=== PATIENT | female | born 1990 | race Caucasian/White ===

== ENCOUNTER 2022-03-28 13:40 | Emergency (ER) | payer SELFPAY ==
[2022-03-28 13:44] VITALS: BP 112/64; PULSE 101; RESP 18; TEMP 36.6; O2SAT 98
--- NOTE | 2022-03-28 14:01 | ED.GENADUL_ITS ---
Discharge Plan Disposition Patient Disposition: Home Condition: Stable Discharge Details Clinical Impression: Pyelonephritis Primary Care Provider: None,None ED Provider: Jones Tuttle Home Meds and New Rx's Prescriptions: New cefpodoxime 200 mg tablet 200 mg PO Q12H Qty: 20 0RF Rx Instructions: must administer with a meal/food Continued levetiracetam [Keppra] 500 MG tablet 1,000 mg PO Q12H Qty: 60 1RF Discontinued ciprofloxacin HCl 500 MG tablet 500 mg PO BID Qty: 10 0RF Discharge Instructions Instructions: Kidney Infection (ED) Additional Instructions: Please take antibiotics as prescribed and follow-up with your primary care provider if not improving in the next 4 days. If you develop persistent vomiting, inability to take your antibiotics, or worsening of your condition return to the emergency department for reassessment. Referrals: Primary Care Provider [Outside] Discharge Data Discharge Date/Time-TO BE ENTERED AT DEPARTURE: 03/28/22 15:44 Medical Decision Making Patient presenting to the emergency department for chief complaint of urinary urgency, bilateral flank pain, nausea, fever chills. She states this is similar to previous episodes of kidney infection. She reports symptoms have been going on for 3 days. She does states she is tolerating p.o. intake and otherwise feels well. Physical exam shows nontoxic well-appearing female patient with mild to moderate bilateral CVA tenderness, suprapubic tenderness otherwise stable vital signs no tachycardia and is afebrile. We will plan on checking urinalysis and test. Patient is not and urinalysis is consistent with infection. At this time I doubt infected renal calculi but more suspect urinary tract infection with suspicion of pyelonephritis. I do feel that patient is stable for outpatient therapy and will put patient on cefpodoxime with discussion of close monitoring of symptoms and return and follow-up precautions. After discussion of diagnosis and plan of care patient has no further needs, questions, or concerns and states clear understanding to return to the emergency department for any worsening symptoms. This documentation was generated using [employer] system, please disregard any oddities of phrase or misspellings. HPI General Mode of arrival: ambulatory . Date/Time Provider Initiated Documentation: 03/28/22 13:40 . Limitations to Documentation: no limitations . Information obtained by: patient and RN notes reviewed . History of Present Illness 31 year old F presents to the emergency department with the chief complaint of Bilateral flank pain, described as moderate, with intensity rated at 7. Quality is described as aching, and is localized to the back. Patient reports no radiation. Patient started experiencing this day(s) (3) and it has been constant. No relieving factors improve symptom(s), No exacerbating factors reported . Patient notes fever/chills; denies loss of appetite. Patient did receive the following treatments prior to arrival, NSAID Related Data Home Medications Medication Instructions Recorded Confirmed levetiracetam 500 mg tablet 1,000 mg PO Q12H #60 tabs 10/01/16 (Keppra) cefpodoxime 200 mg tablet 200 mg PO Q12H #20 tabs 03/28/22 Previous Rx's Medication Instructions Recorded levetiracetam 500 mg tablet 1,000 mg PO Q12H #60 tabs 10/01/16 (Keppra) cefpodoxime 200 mg tablet 200 mg PO Q12H #20 tabs 03/28/22 Allergies Allergy/AdvReac Type Severity Reaction Status Date / Time Penicillins Allergy Severe Anaphylaxsi Unverified 09/30/16 09:46 s codeine Allergy Intermediate Skin Rash Unverified 09/30/16 09:46 venom-honey bee Allergy Unknown Swelling/Ed Unverified 09/30/16 09:46 [bee venom (honey bee)] bala onions Allergy Intermediate Swelling/Ed Uncoded 09/30/16 09:46 bala General Stated Complaint: FlankPain NEIL: 3 Review of Systems Constitutional Constitutional: Denies body ache(s), Reports chills, Reports fever(s), Reports malaise and Denies weakness Cardiovascular Cardiovascular: Denies chest pain Respiratory Respiratory: Reports system reviewed and no additional complaints, except as documented Gastrointestinal Gastrointestinal: Reports abdominal pain, Denies nausea and Denies vomiting Genitourinary Genitourinary: Reports as per HPI, Denies hematuria, Denies urinary frequency, Denies dysuria, Reports flank pain, Reports urinary urgency and Denies vaginal discharge Musculoskeletal Musculoskeletal: Denies back pain Integumentary/Breasts Skin/Breast: Denies rash Neurologic Neurologic: Denies confusion and Denies weakness Psychiatric Psychiatric: Denies confusion PFSH All Active Problems (Updated 03/28/22 @ 15:27 by Jones Tuttle NP) Pain, dental (Acute) Pyelonephritis (Acute) Social History Smoking/Tobacco Use Status: Current every day Tobacco Type: cigarettes Smoking risk assessment performed?: Yes Alcohol Intake: never Drug use: Current Sobriety Substance use type: does not use Do you feel safe at home: Yes Do you feel safe in your relationship?: Yes Exam Const General: cooperative and no acute distress Orientation: alert, awake and oriented x3 Resp Effort & Inspection: normal respiratory effort and able to speak in complete sentences Auscultation: clear to auscultation bilaterally Cardio Rate: regular rate Rhythm: regular rhythm Heart Sounds: S1 normal and S2 normal GI Palpation: soft, not firm, no guarding and tender suprapubicly General: CVA tenderness bilaterally Neuro General: patient alert, patient awake and patient oriented x3 Extrem General: capillary refill normal Course Vital Signs Vital signs: Vital Signs Temperature 36.6 C 03/28/22 13:44 Pulse 101 H 03/28/22 13:44 Respiratory Rate 18 03/28/22 13:44 Blood Pressure 112/64 03/28/22 13:44 Pulse Oximetry 98 03/28/22 13:44 Temperature 36.6 C 03/28/22 13:44 Temperature Source Tympanic 03/28/22 13:44 Pulse 101 H 03/28/22 13:44 Respiratory Rate 18 03/28/22 13:44 Respiratory Effort 03/28/22 13:46 Blood Pressure 112/64 03/28/22 13:44 Blood Pressure Position Supine 03/28/22 13:44 Pulse Oximetry 98 03/28/22 13:44 Oxygen Delivery Method Room Air 03/28/22 13:44 Oxygen Flow Rate 0 03/28/22 13:44 Pain Level 6 03/28/22 13:44
[2022-03-28 14:26] LABS: Bilirubin Small (Negative); Blood Moderate (Negative); Clarity Cloudy (Clear); Glucose Negative (Negative); Ketones Negative (Negative); Leukocyte Esterase Large (Negative); Nitrite Negative (Negative)
[2022-03-28 14:32] LABS: WBC 20-50 HPF (0-5)
[2022-03-28 14:33] LABS: Bacteria Moderate HPF (Negative); C & S Indicated? Yes; Casts Negative LPF (Negative); Crystals Negative HPF (Negative); Epithelial Cells Few HPF (Negative); Mucus Trace (Negative)
[2022-03-28] MEDS: Cefpodoxime 200 MG TAB PO (15:41)
== END 2022-03-28 15:44 | disposition home or self-care (01) ==
PROVIDERS: Emergency Provider Nurse Practitioner Family
DX: N12 Tubulo-interstitial nephritis, not specified as acute or chronic (principal)
CPT/HCPCS: 81025; 87077; 99283; 81003; 81015; 87086; 87186; 99284

== ENCOUNTER 2022-08-11 14:26 | Emergency (ER) | payer SELFPAY ==
[2022-08-11 14:32] VITALS: BP 115/65; PULSE 100; RESP 18; O2SAT 100
[2022-08-11 14:49] LABS: Bilirubin Negative (Negative); Blood Negative (Negative); Clarity Clear (Clear); Glucose Negative (Negative); Ketones Negative (Negative); Leukocyte Esterase Negative (Negative); Nitrite Negative (Negative)
--- NOTE | 2022-08-11 14:54 | W.ED.GENAD ---
Discharge Plan Disposition Patient Disposition: Home Condition: Stable Discharge Details Clinical Impression: Viral infection Primary Care Provider: None,None ED Provider: Rody Burleson Home Meds and New Rx's Prescriptions: Continued levetiracetam [Keppra] 500 MG tablet 1,000 mg PO Q12H Qty: 60 1RF Patient Comments: pt states not taking cefpodoxime 200 mg tablet 200 mg PO Q12H Qty: 20 0RF Patient Comments: pt states not taking Rx Instructions: must administer with a meal/food Discharge Instructions Instructions: Viral Syndrome (ED) Additional Instructions: Your urine is reassuring here with no evidence of urinary tract infection. Your COVID and flu were also negative. Most concerned that you have a viral infection causing you to have these fevers. Please encourage hydration. Tylenol and ibuprofen as needed for discomfort. I have asked her care management team to assist you with local primary care. If you develop inability stay hydrated, more focal symptoms such as significant cough, abdominal pain or other new/worsening symptom please seek care urgently once again. Wash your hands to help prevent spread. Discharge Data Discharge Date/Time-TO BE ENTERED AT DEPARTURE: 08/11/22 15:40 Medical Decision Making Patient is a pleasant 31-year-old female with past medical history of asthma, kidney stones, narcotic abuse, seizure disorder, active smoker, presenting today with chief complaint of fever. She reports that for the past 3 days she had general malaise, has felt febrile with some chills. Reports mild cough and some loose stools. 1 bowel movement today. Nonbloody. Denies any abdominal pain. No vaginal discharge. Denies any dysuria, increased frequency or urgency. Patient reports that she is up-to-date on immunizations. Denies sore throat, congestion. On exam, patient appears nontoxic. She is currently afebrile. She appears slightly dehydrated. Lungs are clear, normal cardiac exam. Abdomen is benign. No CVA tenderness. Patient was initially concern for potential UTI she has had multiple of these in the past but her urine is without leukocytes or evidence of infection. Her vagueness and general malaise of her symptoms make him think more viral etiology. Will obtain COVID test. COVID-negative. Patient was initially slightly tachycardic with a heart rate of 100 this is downtrending. She is able to tolerate p.o. intake. Her urine is without evidence of infection. Likely viral infection. Encourage supportive care. We discussed expected course. Patient does not have local primary care and I have asked our care management team to assist in helping her obtain local PCP for follow-up. Return precautions discussed. All of her questions and concerns were addressed and she is in agreement this plan. HPI General Date/Time Provider Initiated Documentation: 08/11/22 14:41. Limitations to Documentation: no limitations. Information obtained by: patient, family (significant other) and RN notes reviewed. History of Present Illness 31 year old F presents to the emergency department with the chief complaint of nausea, fever, general malaise, cough, loose stools, described as mild, Quality is described as aching (body aches), Patient started experiencing this day(s) (3) and it has been constant. No relieving factors improve symptom(s), No exacerbating factors reported . Patient notes cough, fever/chills, loss of appetite, malaise and nausea/vomiting (nausea, no vomiting); denies chest pain, rash and shortness of breath. Patient did receive the following treatments prior to arrival, none Related Data Home Medications Medication Instructions Recorded Confirmed levetiracetam 500 mg tablet 1,000 mg PO Q12H #60 tabs 10/01/16 (Keppra) cefpodoxime 200 mg tablet 200 mg PO Q12H #20 tabs 03/28/22 Previous Rx's Medication Instructions Recorded levetiracetam 500 mg tablet 1,000 mg PO Q12H #60 tabs 10/01/16 (Keppra) cefpodoxime 200 mg tablet 200 mg PO Q12H #20 tabs 03/28/22 Allergies Allergy/AdvReac Type Severity Reaction Status Date / Time Penicillins Allergy Severe Anaphylaxsi Unverified 09/30/16 09:46 s codeine Allergy Intermediate Skin Rash Unverified 09/30/16 09:46 venom-honey bee Allergy Unknown Swelling/Ed Unverified 09/30/16 09:46 [bee venom (honey bee)] bala onions Allergy Intermediate Swelling/Ed Uncoded 09/30/16 09:46 bala General Stated Complaint: Urinary NEIL: 3 Review of Systems Constitutional Constitutional: Reports as per HPI and Denies headache(s) Eyes Eyes: Reports as per HPI and Denies irritation ENT Ears, Nose, Mouth, and Throat: Reports as per HPI and Denies headache(s) Cardiovascular Cardiovascular: Reports as per HPI, Denies chest pain and Denies dyspnea Respiratory Respiratory: Reports as per HPI and Denies dyspnea Gastrointestinal Gastrointestinal: Reports as per HPI, Denies abdominal pain and Denies change in bowel habits Integumentary/Breasts Skin/Breast: Reports as per HPI and Denies rash Neurologic Neurologic: Reports as per HPI and Denies headache(s) PFSH All Active Problems (Updated 08/11/22 @ 15:32 by CINTHYA Vaughn) Pain, dental (Acute) Viral infection (Acute) Social History Smoking/Tobacco Use Status: Current every day Tobacco Type: cigarettes Smoking risk assessment performed?: Yes Alcohol Intake: never Drug use: Current Sobriety Substance use type: does not use Do you feel safe at home: Yes Do you feel safe in your relationship?: Yes Exam Const General: cooperative, healthy appearing, comfortable, no acute distress, well developed and well groomed Nutritional Appearance: average body habitus and well nourished Orientation: alert and awake [facility] Head: normal to inspection, normocephalic and atraumatic Ears: hearing grossly normal bilaterally, external ears normal and TM's normal bilaterally General nose exam: external nose normal and nares normal Face and sinus: normal facial exam, sinuses nontender and face symmetric Mouth: oral mucosae normal, lip normal, tongue normal, oropharynx normal and moist mucous membranes Teeth and gingiva: dentition normal Throat: posterior oropharynx normal, tonsils normal and uvula midline Eyes General: appearance normal, both eyes and all related structures Neck Neck: normal visual inspection, full ROM, no lymphadenopathy and no meningeal signs Resp Effort & Inspection: normal respiratory effort, able to speak in complete sentences and no respiratory distress Auscultation: clear to auscultation bilaterally, no rales, no rhonchi and no wheezes Cardio Rate: regular rate Rhythm: regular rhythm Heart Sounds: S1 normal and S2 normal GI Inspection: normal to inspection Palpation: soft, not firm, not rigid and nontender Back/Spine/Pelvis Back: no CVA tenderness Skin General skin exam: no rashes or lesions noted Neuro General: patient alert and patient awake Cognition: normal cognition Speech: speech normal Gait: normal gait Psych Appearance: grossly normal and well kempt Mental Status: mental status grossly normal Speech and Movement: speech and movement normal Course Vital Signs Vital signs: Vital Signs Pulse 100 H 08/11/22 14:32 Respiratory Rate 18 08/11/22 14:32 Blood Pressure 115/65 08/11/22 14:32 Pulse Oximetry 100 08/11/22 14:32 Temperature Source Oral 08/11/22 14:32 Pulse 100 H 08/11/22 14:32 Respiratory Rate 18 08/11/22 14:32 Respiratory Effort Normal, Non-Labored 08/11/22 14:46 Blood Pressure 115/65 08/11/22 14:32 Blood Pressure Position Sitting 08/11/22 14:32 Pulse Oximetry 100 08/11/22 14:32 Oxygen Delivery Method Room Air 08/11/22 14:32 Oxygen Flow Rate 0 08/11/22 14:32 Lab/Test Results Lab/Test Results: Laboratory Tests Range/Units 08/11/22 14:42 Urine Color (Yellow) Yellow Urine Clarity (Clear) Clear Urine pH (5-8) 7.0 Ur Specific [place] (1.005-1.025) 1.010 Urine Protein (Negative) mg/dL Negative Urine Ketones (Negative) mg/dL Negative Urine Blood (Negative) Negative Urine Nitrite (Negative) Negative Urine Bilirubin (Negative) Negative Urine Urobilinogen (Up to 0.2) mg/dL 1.0 H Ur Leukocyte Esterase (Negative) Negative Urine Glucose (Negative) mg/dL Negative POC- Test(urine) Negative
[2022-08-11 15:41] VITALS: BP 114/74; PULSE 86; RESP 18; TEMP 36.8; O2SAT 97
== END 2022-08-11 15:40 | disposition home or self-care (01) ==
PROVIDERS: Emergency Provider Physician Assistant
DX: B34.9 Viral infection, unspecified (principal); R11.2 Nausea with vomiting, unspecified
CPT/HCPCS: 81025; 87426; 99283; 81003

== ENCOUNTER 2023-02-08 12:38 | Emergency (ER) | payer MEDICAID, SELFPAY ==
[2023-02-08 12:44] VITALS: BP 122/79; PULSE 82; RESP 20; TEMP 37.1; O2SAT 99
--- NOTE | 2023-02-08 12:49 | W.ED.GENAD ---
Discharge Plan Disposition Patient Disposition: Home Condition: Good Discharge Details Chief Complaint: GenMedical Clinical Impression: Encounter for medical assessment Primary Care Provider: None,None ED Provider: Viet Scott Home Meds and New Rx's Prescriptions: No Action levetiracetam [Keppra] 500 MG tablet 1,000 mg PO Q12H Qty: 60 1RF Hold Instructions: Pt Stopped/Never Started Patient Comments: pt states not taking cefpodoxime 200 mg tablet 200 mg PO Q12H Qty: 20 0RF Patient Comments: pt states not taking Rx Instructions: must administer with a meal/food Discharge Instructions Additional Instructions: At this time you had been seen and evaluated here in the emergency department. There is currently no evidence of an acute life-threatening etiology based on your current clinical assessment and exam. You do currently demonstrate medical stability. Please follow-up closely with your primary care provider. If you do have additional questions or concerns with your [facility] program, please contact your program [facility]. If you notice any worsening of your symptoms, or any new symptoms such as vomiting, diarrhea, fever, chills, shortness of breath, chest pain, numbness, weakness, or fainting , please return immediately to the emergency department for reevaluation. Please follow up with your primary care provider as soon as possible for reassessment and reevaluation. As always, it was a pleasure participating in your medical care today. Medical Decision Making 32-year-old female with a past medical history of previous heroin abuse, who got out of [facility] and then transition to Suboxone, but was getting this on the street for the last 3 months. Last time she used was fentanyl and that was 3 months ago. She has cleaned up her life per report, and she contacted [facility] in [place] for getting on medication assisted therapies. They requested that the patient come in and be screened by medical practitioner for medical screening and stability prior to her being able to start her therapy treatment. This is the reason for today's visit. Patient denies any chest pain or shortness of breath. She denies any IV drug use since last using fentanyl in the past. She denies vomiting or diarrhea. She denies headache or chest pain. No other complaints at this time. She does admit to tobacco and marijuana use occasionally. No other drug use. Not currently taking any medications. No alcohol use in excess. Exam demonstrates a well-appearing female, no vital sign abnormalities. No evidence of withdrawal. No evidence of recent illicit drug use. Lungs are clear, heart rate normal. The remainder of her exam shows no concerning red flags at this time. At this time patient demonstrates notable medical stability. I did contact [facility] and discussed this with them. They have faxed over the medical records request sheet. We we will send the medical records back to them. We do not have any current laboratory workup performed on the patient, and [facility] is stated that this is not necessary at this time. Patient otherwise stable. Patient will be discharged home. I did offer to set up a relationship with the [facility] [place] [place] [facility] here in [facility], and the patient requested a preference towards [facility] as the alternative. I have extensively reviewed the treatment plan and discharge instructions with the patient. I have addressed all patient concerns at this time. The patient was made aware of what symptoms to monitor for that would warrant a return to the emergency department. Discussed the plan with the patient, they demonstrate verbal understanding and agreement with our assessment and plan at this time. The documentation in this chart was dictated using [employer] dictation software. Please excuse any dictation errors. HPI General Date/Time Provider Initiated Documentation: 02/08/23 12:42. HPI Narrative: 32-year-old female with a past medical history of previous heroin abuse, who got out of [facility] and then transition to Suboxone, but was getting this on the street for the last 3 months. Last time she used was fentanyl and that was 3 months ago. She has cleaned up her life per report, and she contacted [facility] in [place] for getting on medication assisted therapies. They requested that the patient come in and be screened by medical practitioner for medical screening and stability prior to her being able to start her therapy treatment. This is the reason for today's visit. Patient denies any chest pain or shortness of breath. She denies any IV drug use since last using fentanyl in the past. She denies vomiting or diarrhea. She denies headache or chest pain. No other complaints at this time. She does admit to tobacco and marijuana use occasionally. No other drug use. Not currently taking any medications. No alcohol use in excess. Related Data Home Medications Medication Instructions Recorded Confirmed levetiracetam 500 mg tablet 1,000 mg (2 x 500 mg) PO Q12H #60 10/01/16 02/08/23 (Keppra) tabs cefpodoxime 200 mg tablet 200 mg PO Q12H #20 tabs 03/28/22 02/08/23 Previous Rx's Medication Instructions Recorded levetiracetam 500 mg tablet 1,000 mg (2 x 500 mg) PO Q12H #60 10/01/16 (Keppra) tabs cefpodoxime 200 mg tablet 200 mg PO Q12H #20 tabs 03/28/22 Allergies Allergy/AdvReac Type Severity Reaction Status Date / Time Penicillins Allergy Severe Anaphylaxsi Unverified 02/08/23 12:50 s codeine Allergy Intermediate Skin Rash Unverified 02/08/23 12:50 venom-honey bee Allergy Unknown Swelling/Ed Unverified 02/08/23 12:50 [bee venom (honey bee)] bala onions Allergy Intermediate Swelling/Ed Uncoded 02/08/23 12:50 bala General Stated Complaint: GenMedical NEIL: 4 Review of Systems All systems reviewed & are unremarkable except as noted in HPI and below PFSH All Active Problems (Updated 02/08/23 @ 13:18 by Viet Scott DO) Encounter for medical assessment (Acute) Pain, dental (Acute) Social History Smoking/Tobacco Use Status: Current every day Tobacco Type: cigarettes Smoking risk assessment performed?: Yes Alcohol Intake: never Drug use: Current Sobriety Substance use type: does not use Do you feel safe at home: Yes Do you feel safe in your relationship?: Yes Exam Narrative Exam Narrative: 1.Const: Well-nourished, Well-developed, appearing stated age 2.Eyes: PERRL, no conjunctival injection, and symmetrical lids. 3.ENT: Atraumatic external nose and ears. Moist MM. Neck: Symmetric, trachea midline, No thyromegaly. 4.CVS: +S1/S2, No murmurs or gallops. Peripheral pulses 2+ and equal in all extremities. Brisk capillary refill in all extremities. 5.RESP: Unlabored respiratory effort. Clear to auscultation bilaterally. No wheezes rales or rhonchi 6.GI: Soft, Nontender/Nondistended, No hepatosplenomegaly. No guarding or rebound. 7.MSK: Normocephalic/Atraumatic, Extremities w/o deformity or ttp No cyanosis or clubbing, Normal movement of all extremities 8.Skin: Warm, Dry. No rashes or lesions. 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 Sensation grossly intact, no focal neurologic deficits. 10.Psych: (AAO) x3. Appropriate mood and affect Course Vital Signs Vital signs: Vital Signs Temperature 37.1 C 02/08/23 12:44 Pulse 82 02/08/23 12:44 Respiratory Rate 20 02/08/23 12:44 Blood Pressure 122/79 02/08/23 12:44 Pulse Oximetry 99 02/08/23 12:44 Temperature 37.1 C 02/08/23 12:44 Temperature Source Oral 02/08/23 12:44 Pulse 82 02/08/23 12:44 Respiratory Rate 20 02/08/23 12:44 Respiratory Effort Normal 02/08/23 12:48 Respiratory Depth Normal 02/08/23 12:48 Respiratory Pattern Normal 02/08/23 12:48 Blood Pressure 122/79 02/08/23 12:44 Blood Pressure Position Sitting 02/08/23 12:44 Pulse Oximetry 99 02/08/23 12:44 Oxygen Delivery Method Room Air 02/08/23 12:44 Oxygen Flow Rate 0 02/08/23 12:44
--- NOTE | 2023-02-09 16:43 | NUR.NOTE ---
Nursing Note: Patient called with a question about her discharge. Patient needed documentation stating she had an opioid problem
== END 2023-02-08 13:22 | disposition home or self-care (01) ==
PROVIDERS: Emergency Provider Student in an Organized Health Care Education/Training Program
DX: Z76.0 Encounter for issue of repeat prescription (principal)
CPT/HCPCS: 99283

== ENCOUNTER 2023-05-08 10:19 | Emergency (ER) | payer MEDICAID, SELFPAY ==
[2023-05-08 10:25] VITALS: BP 135/74; PULSE 109; RESP 22; O2SAT 92
--- NOTE | 2023-05-08 10:32 | ED.GENADUL_ITS ---
Discharge Plan Disposition Patient Disposition: Home Condition: Stable Discharge Details Clinical Impression: Anxiety, Adverse drug reaction Primary Care Provider: Unknown,Unknown ED Provider: Yuri Zarate Home Meds and New Rx's Prescriptions: Discontinued levetiracetam [Keppra] 500 MG tablet 1,000 mg PO Q12H Qty: 60 1RF Hold Instructions: Pt Stopped/Never Started Patient Comments: pt states not taking cefpodoxime 200 mg tablet 200 mg PO Q12H Qty: 20 0RF Patient Comments: pt states not taking Rx Instructions: must administer with a meal/food Discharge Instructions Additional Instructions: You had no findings on exam to suggest an allergic reaction. This was likely an adverse reaction to the drugs that you used, which unfortunately can happen Follow-up with your primary care provider especially if you have lingering symptoms within a week If you feel more ill, have difficulty breathing, or persistent vomiting return to the emergency department for reevaluation HPI General Mode of arrival: ambulatory . Date/Time Provider Initiated Documentation: 05/08/23 10:20 . Limitations to Documentation: no limitations . Information obtained by: patient . History of Present Illness 32 year old F presents to the emergency department with the chief complaint of ?facial swelling, Patient started experiencing this hour(s) (1) and it has been constant. No relieving factors improve symptom(s), No exacerbating factors reported . Patient notes denies confusion, fever/chills, nausea/vomiting and shortness of breath. Patient did receive the following treatments prior to arrival, none Related Data Allergies Allergy/AdvReac Type Severity Reaction Status Date / Time Penicillins Allergy Severe Anaphylaxsi Unverified 02/08/23 12:50 s codeine Allergy Intermediate Skin Rash Unverified 02/08/23 12:50 venom-honey bee Allergy Unknown Swelling/Ed Unverified 02/08/23 12:50 [bee venom (honey bee)] bala onions Allergy Intermediate Swelling/Ed Uncoded 02/08/23 12:50 bala General Stated Complaint: Allergic NEIL: 3 Review of Systems All systems reviewed & are unremarkable except as noted in HPI and below Constitutional Constitutional: Denies chills, Denies fever(s) and Denies weakness Cardiovascular Cardiovascular: Denies chest pain and Denies dyspnea Respiratory Respiratory: Denies cough and Denies dyspnea Gastrointestinal Gastrointestinal: Denies abdominal pain, Denies nausea and Denies vomiting Integumentary/Breasts Skin/Breast: Denies rash Neurologic Neurologic: Denies weakness Exam Const General: anxious Orientation: alert HENMT Head: normal to inspection Ears: external ears normal General nose exam: external nose normal Mouth: oral mucosae normal, oropharynx normal, moist mucous membranes and no muffled voice Throat: uvula midline Eyes General: appearance normal, both eyes and all related structures Neck Neck: normal visual inspection Resp Effort & Inspection: normal respiratory effort and able to speak in complete sentences Auscultation: clear to auscultation bilaterally Cardio Rate: regular rate GI Palpation: soft and nontender Skin General skin exam: no rashes or lesions noted Neuro General: patient alert and patient oriented x3 Extrem General: normal to inspection Psych Mental Status: mental status grossly normal Course Vital Signs Vital signs: Vital Signs Pulse 109 H 05/08/23 10:25 Respiratory Rate 22 05/08/23 10:25 Blood Pressure 135/74 05/08/23 10:25 Pulse Oximetry 92 05/08/23 10:25 Pulse 109 H 05/08/23 10:25 Respiratory Rate 22 05/08/23 10:25 Blood Pressure 135/74 05/08/23 10:25 Blood Pressure Position Sitting 05/08/23 10:25 Pulse Oximetry 92 05/08/23 10:25 Oxygen Delivery Method Room Air 05/08/23 10:25 Oxygen Flow Rate 0 05/08/23 10:25 Medical Decision Making 32-year-old female with a history of substance abuse, comes in stating that she feels like her face is swelling and having a panic attack shortly after smoking crack patient. She states she woke up feeling well and then smoked crack and started feeling like her face was swelling and became anxious jittery and tearful. Denies any other drug use today. Denies any difficulty breathing, GI symptoms, rash. She has no significant swelling noted on exam of her face, normal posterior pharynx with midline normal-appearing uvula, no rashes, clear lung sounds, soft nontender abdomen, patient is tearful on exam and does appear anxious speaking very fast. Unclear if allergic reaction though I doubt this given lack of other findings on exam such as rash or GI or respiratory symptoms. Suspected drug reaction from the crack that she smoked, will treat with a dose of Ativan and Benadryl and monitor and reassess Patient states she feels much better, requesting discharge. Still has no evidence of rash, clear lung sounds, no significant swelling noted anywhere. Suspect this was a anxiety attack and possibly reaction to the crack that she used. Do not feel she requires epinephrine. She is stable for discharge, advised to follow-up with her primary care provider within a week. Return precautions given Differential Diagnosis Differential Diagnosis: anxiety, drug reaction Quality:SDOH Health Related Social Needs: No Data to Display PFSH All Active Problems (Updated 05/08/23 @ 11:42 by Yuri Zarate MD) Adverse drug reaction (Acute) Anxiety (Chronic) Pain, dental (Acute) Social History Smoking/Tobacco Use Status: Current every day Tobacco Type: cigarettes Smoking risk assessment performed?: Yes Alcohol Intake: never Drug use: Current Sobriety Substance use type: does not use Do you feel safe at home: Yes Do you feel safe in your relationship?: Yes
[2023-05-08] MEDS: LORazepam 2 MG/ML VIAL 1 MG IVP (10:58)
[2023-05-08] MEDS: diphenhydrAMINE 50 MG/ML VIAL 25 MG IVP (10:58)
[2023-05-08] MEDS: Normal Saline 1,000 ML 1000 ML IV (10:58)
[2023-05-08 12:01] VITALS: BP 114/78; PULSE 78; RESP 16
== END 2023-05-08 11:58 | disposition home or self-care (01) ==
PROVIDERS: Emergency Provider Emergency Medicine
DX: T40.5X5A Adverse effect of cocaine, initial encounter (principal); R22.0 Localized swelling, mass and lump, head; F41.9 Anxiety disorder, unspecified; F17.210 Nicotine dependence, cigarettes, uncomplicated
CPT/HCPCS: 96361; 96374; 96375; 99284; J1200; J2060

== ENCOUNTER 2023-06-02 15:42 | Emergency (ER) | payer MEDICAID, SELFPAY ==
[2023-06-02] VITALS (101 sets, daily range): BP systolic 106–150; BP diastolic 54–70; PULSE 46–86; RESP 6–29; TEMP 36.1; O2SAT 81–99
[2023-06-02] MEDS: Midazolam 10 MG/2 ML VIAL NS (15:47)
[2023-06-02] MEDS: Ketamine 500 MG/5 ML VIAL (16:06)
--- NOTE | 2023-06-02 16:24 | NUR.NOTE ---
Nursing Note: pt resting with eyes closed. All four retraints removed at 1615 with team in agreement. Sitter present and pt being continuously monitored.
--- NOTE | 2023-06-02 16:30 | RT.EKG_ITS ---
APPROVED REPORT Exam: Resting ECG Reason for Exam: Acute encephalopathy Patient Location: E HR:70 bpm ECG Measurements Heart Rate 70 AXIS WV 134 P 58 QRSd 99 QRS 14 QT 416 T -6 QTc 493 Conclusion Sinus rhythm...normal P axis, V-rate 60- 99 Nonspecific T abnormalities, anterior leads...T <-0.10mV, V2-V4 Narrow complex normal sinus rhythm at a rate of 70. Normal axis. Intervals within normal limits. N o ST segment abnormalities. T wave inversions V2 and V3. No acute injury pattern. No prior for [employer].
--- NOTE | 2023-06-02 16:31 | W.ED.GENAD ---
Discharge Plan Discharge Details Chief Complaint: OD/Poison Clinical Impression: Acute encephalopathy Primary Care Provider: Unknown,Unknown ED Provider: Steve Tolbert [facility] General Date/Time Provider Initiated Documentation: 06/02/23 16:29. [facility] Narrative: MDM This is an afebrile, and not tachycardic nor hypoglycemic 32-year-old female with acute encephalopathy following reported methamphetamine and fentanyl use today requiring dissociative dose intramuscular ketamine given dangerous agitation threatening to herself and others. Patient arrived uncontrollably violent posing an immediate threat to self and others. Her presentation was not thought to be high risk as result of a dangerous medical condition given her recreational drug use. Rather her presentation was high risk based on her behavior. She also transiently required long enforcement to hold restraints. She had no restraint hold on her neck nor chest. She did transiently have a hand placed by law enforcement on her face. I asked the officer to remove his hand. She had no signs of trauma so I did not feel that she required a CT scan of her head to assess for intracranial hemorrhage. Her fingerstick blood glucose was reassuring against any diabetic emergencies. Given her uncontrollable violence I elected for management with speed using dissociative dose intramuscular ketamine despite the lower safety profile compared to intramuscular midazolam and droperidol. Of note patient did initially receive 5 mg of intramuscular midazolam but unfortunately this did not correct her dangerous agitation. Will send labs to assess for hypovolemia and any acute electrolyte abnormalities. I ordered the patient 1 L of IV fluids. Of note that paramedics reported that the patient elected voluntarily to get into the ambulance. She was not hypoxic nor tachycardic on arrival. Subsequently she began running in the street and was, as a result, dangerous to herself. It is most likely that the patient's recreational drug use led to agitation once she was in the ambulance which subsequently escalated into her emergency department visit. Nonetheless, patient was monitored under procedural sedation for the extent for ketamine sedation. Once her ketamine dissociation was initiated her restraints were discontinued. She was not markedly tachycardic nor hypertensive to suggest sympathomimetic toxidrome however will send troponin in the event that patient used cocaine. She was not flush nor febrile up to suggest anticholinergic toxidrome. She did not have pinpoint pupils nor respiratory depression so my suspicion is low for opiate toxidrome. No rigidity to suggest neuroleptic malignant syndrome. No hyperreflexia to suggest serotonin syndrome. No tonic-clonic activity nor loss of bowel or bladder control to suggest seizures so I do not feel that the patient requires an EEG. Will sign patient out to oncoming evening provider pending clinical reassessment and ultimate disposition. Chronic conditions affecting the care of the patient: Reported history of anxiety seizure disorder and reported narcotic abuse History obtained from an outside historian: Paramedics and police officers External record review: No [facility] [place] EMR records Diagnostic interpretations performed by me: Per my independent interpretation EKG shows: Narrow complex normal sinus rhythm at a rate of 70. Normal axis. Intervals within normal limits. No ST segment abnormalities. T wave inversions V2 and V3. No acute injury pattern. No prior for comparison. ]Medications: IV fluids, midazolam, ketamine Social determinants of health affecting disposition: N/A Management discussed with: Oncoming ED provider Treatment/interventions considered: CT head but deferred Response to therapies provided: Calm following sedation HPI This is a 32-year-old female with history of seizure disorder anxiety and reported narcotic abuse arrived to the emergency department via paramedics in the setting of drug use. Patient was reportedly using methamphetamine and fentanyl. She was seen sitting by bystanders. She reportedly was feeling anxious and wanted help. Paramedics were called. Patient voluntarily ambulated into the ambulance. She sat down on her own volition. Subsequently the patient became markedly agitated. He ran out of the ambulance. She was running into traffic. [facility] police became involved. Patient was restrained and became reportedly aggressive and violent once [facility] officers were involved. Law enforcement officers arrived with patient in the ambulance. Unable to obtain additional history secondary to the acuity of the patient's presentation. Of note paramedics reported that the patient's pulse was 90 and her oxygen saturation was 98 % on room air. They were unable to obtain fingerstick blood glucose. Exam General: Markedly agitated struggling against officers in 4-point restraints wearing a spit mask. Head: Normocephalic, atraumatic. Eye:[Pupils equal, round reactive to light.] Extraocular eye movements intact. No conjunctival injection. No scleral icterus. No hemotympanum bilaterally. No pinpoint pupils. Ear, nose, mouth, throat: Grossly normal inspection. Normal voice, handling secretions normally. Neck: Trachea midline. Cardiovascular: Well-perfused distal extremities. Regular rate and rhythm Respiratory: Nonlabored respiration. Clear lungs bilaterally Gastrointestinal: Nondistended abdomen. Soft nontender. Musculoskeletal: No edema. Moving all 4 extremities spontaneously. Track glaser right upper extremity AC. Skin: Normal for age and race, grossly normal temperature and turgor. No acute rash. Neurologic:GCS 13: E4, V4, M5. Of note patient was refusing to obey commands. No obvious hyperreflexia. No clonus. No nystagmus. Psychiatric: Markedly agitated. Grooming appropriate. No pressured speech. No obvious flight of ideas. Related Data Allergies Allergy/AdvReac Type Severity Reaction Status Date / Time Penicillins Allergy Severe Anaphylaxsi Unverified 02/08/23 12:50 s codeine Allergy Intermediate Skin Rash Unverified 02/08/23 12:50 venom-honey bee Allergy Unknown Swelling/Ed Unverified 02/08/23 12:50 [bee venom (honey bee)] bala onions Allergy Intermediate Swelling/Ed Uncoded 02/08/23 12:50 bala General Stated Complaint: OD/Poison NEIL: 2 Course Vital Signs Vital signs: Vital Signs Temperature 36.1 C L 06/02/23 15:44 Pulse 86 06/02/23 15:44 Respiratory Rate 15 06/02/23 15:44 Blood Pressure 150/70 H 06/02/23 15:44 Pulse Oximetry 99 06/02/23 15:44 Temperature 36.1 C L 06/02/23 15:44 Temperature Source Temporal Artery Scan 06/02/23 15:44 Pulse 86 06/02/23 15:44 Respiratory Rate 20 06/02/23 16:21 Respiratory Effort Normal 06/02/23 16:21 Respiratory Depth Normal 06/02/23 16:21 Respiratory Pattern Normal 06/02/23 16:21 Blood Pressure 150/70 H 06/02/23 15:44 Blood Pressure Position Supine 06/02/23 15:44 Pulse Oximetry 97 06/02/23 16:03 Oxygen Delivery Method Nasal Cannula 06/02/23 16:03 Oxygen Flow Rate 2 06/02/23 16:03 Procedures Procedural Sedation Indication: other (Dangerous agitation) ASA Class: I Preparation: founder / ceo applied, pulse oximeter, capnometry used, supplemental O2 applied, suction/airway equipment at bedside and IV secured Ketamine: IM Ketamine dose (mg): 350 Patient Tolerated Procedure: well Complications: Respiratory Depression-Repositioning Required (Patient transiently at the initiation of procedural sedation had some hypoventilation requiring jaw thrust.) Interventions: oxygen applied and airway repositioned Medical Decision Making Quality:SDOH Health Related Social Needs: No Data to Display Critical Care Time Critical Care Time Critical Care Time: Yes Total Critical Care Time: 45 Attestation: Dangerous agitation requiring intramuscular dissociative dose ketamine PFSH All Active Problems (Updated 06/02/23 @ 16:32 by Steve Tolbert MD) Acute encephalopathy (Acute) Adverse drug reaction (Acute) Anxiety (Chronic) Pain, dental (Acute) Social History Smoking/Tobacco Use Status: Current every day Tobacco Type: cigarettes Smoking risk assessment performed?: Yes Alcohol Intake: never Drug use: Occasionally Substance use type: crack/cocaine Details: unknown substance today Do you feel safe at home: Yes Do you feel safe in your relationship?: Yes Restraint Face to Face Time of Face to Face Face to Face: Time of Face to Face: 15:51 Patient's Immediate Situation Requiring Restraints/Seclusion: Harm to Staff & Others Patient Response to Restraints: Remains Agitated and Restless Patient's Medical & Behavioral Condition: Patient remained agitated and restless despite physical restraints with intramuscular midazolam at 5 mg. As result therapeutics were quickly pivoted to pursue control of dangerous agitation using intramuscular ketamine at 5 mg/kg which patient tolerated well. Restraints were discontinued approximately 5 minutes after the ketamine was administered. This was approximately 20 minutes at the patient's emergency department stay. Please see nursing documentation for precise times for medication administrations. Need for Continuation of Restraints Has Been Assessed: Restraints Terminated
[2023-06-02] MEDS: Normal Saline 1,000 ML 1000 ML IV (17:12)
[2023-06-02 17:32] LABS: Abs Immature Grans 0.01 10^3/uL (0.0-0.06); Absolute Basophil Count 0.03 10^3/uL (0.0-0.2); Absolute Eosinophil Count 0.12 10^3/uL (0.0-0.7); Absolute Lymphocyte Count 2.19 10^3/uL (1.2-3.4); Absolute Monocyte Count 1.13 10^3/uL (0.1-0.8); Absolute Neutrophil Count 4.17 10^3/uL (1.2-6.7); Basophils % 0.4; Eosinophils % 1.6; HCT 35.1 % (36.0-46.0); HGB 11.8 g/dL (11.2-15.7); Immature Grans % 0.1; Lymphocytes % 28.6; MCH 30.7 pg (27.0-33.0); MCHC 33.6 % (32.0-36.0); MCV 91 fL (80-95); MPV 10.5 fL (8.0-11.0); Monocytes % 14.8; Neutrophils % 54.5; Platelet Count 209 10^3/uL (130-400); RBC 3.84 10^6/uL (3.93-5.22); RDW-SD 42.8 fL; WBC 7.65 10^3/uL (4.4-10.8)
[2023-06-02 17:44] LABS: Anion Gap 15.1 mmol/L (3-11); BUN 14 mg/dL (7-18); CO2 23.9 mmol/L (21.0-32.0); Calcium 9.3 mg/dL (8.5-10.1); Chloride 100 mmol/L (98-107); Estimated GFR 76.29 (mL/min/1.73m2); Glucose 85 mg/dL (74-106); Sodium 139 mmol/L (136-145)
[2023-06-02 17:46] LABS: Acetaminophen 2 ug/mL (10-30); HCG Qual (Serum) Negative; Salicylate 3.8 mg/dL (<2.8)
[2023-06-02 17:50] LABS: ETHANOL BLOOD < 3.0 mg/dL (<10); Potassium 2.7 mmol/L (3.5-5.1)
[2023-06-02 17:52] LABS: Troponin I < 50 ng/L (< or =60)
[2023-06-02] MEDS: POTASSIUM CHLORIDE 10 MEQ/100 ML BAG 100 MEQ IVPB (18:07)
--- NOTE | 2023-06-02 18:51 | W.EDPROG ---
Date of service: 06/02/23 Time of Service: 20:14 Medical Decision Making care assumed from off going provider at sign out. Agitated patient with known polysubstance use presented via [facility] and EMS. Circumstances of patient arriving in their care are unclear. Patient received ketamine in ED and was removed from restraints and handcuffs. Lab work ordered, cardiac monitoring ongoing. Final disposition pending reevaluation once awake. 1849 patient mom arrived. updated on circumstances mom reports longstanding history of drug use. mom reports that prior history of crack binges that make her agitated and paranoid. mom reports that this week is the upcoming anniversary of her carol's partner's OD . She was anticipating that she might have some trouble this week. On my exam I note bruising to bilateral thighs, there does appear to letters and numbers written into the leg, but unable to make it out. 2014 re-evaluated patient, mom still at bedside. sleeping comfortably. vitals stable. 2139 waking up slowly, woke up and recognized mom cried squeezed her hand but has gone back to sleep. will continue to monitor. 2214 patient continues to sleep. Vitals stable. will turn over to oncoming provider. Plan to continue to monitor until awake and alert, which I anticipate could be several hours. when awake, will need to reassess any mental health needs prior to discharge. Medical Records Medical records reviewed: Yes I reviewed the patient's medical records. Lab Data Lab results reviewed: Yes I reviewed the patient's lab results. Lab results narrative: mild hypo K, repleated IV mild hypoglycemia, started on maintenance fluids Quality:SDOH Health Related Social Needs: No Data to Display Sign Out Sign Out Data: Sign Out Comment: Please follow-up labs including troponin and clinically reassess this 32-year-old female status post procedural sedation with dissociative dose ketamine in the setting of dangerous agitation secondarily likely to recreational drug use with amphetamines and fentanyl along with escalation from lung enforcement personnel and transient but now resolved restraint use. Last updated by Steve Tolbert MD at 06/02/23 17:30 Sign Out Comment: 32y F with known poly substance abuse, received ketamine in ED for agitation. Responded well to this, and has been sleeping for several hours. No behavioral concerns after this. Mom at bedside. Events today likely all drug related. Labs reviewed, mild hypo K repleated with IV infusion. Placed on D5NS maintenance fluids while sleeping. Plan for continued monitoring until alert and awake. At that time, would assess any psych needs and dispo accordingly. Last updated by Pasha Morrison MD at 06/02/23 22:13 Discharge Plan Discharge Details Chief Complaint: OD/Poison Clinical Impression: Acute encephalopathy Primary Care Provider: Unknown,Unknown ED Provider: Pasha Morrison
--- NOTE | 2023-06-02 18:55 | NUR.NOTE ---
Nursing Note: repositioned patient with assist of DEFECTIVE CIGARETTE SLITTER. Replaced sheet and underpad for comfort and utilized wedges for position and comfort. Pt did not wake, open eyes, or respond during repositioning. Mother now at bedside.
[2023-06-02] MEDS: DEXTROSE 5%-0.9% SALINE 1,000 ML 100 ML IV (19:34)
--- NOTE | 2023-06-02 20:39 | NUR.NOTE ---
Nursing Note: alerted by Mom who is at bedside that Kari is starting to wake up. This proposal manager writer into room and found pt moving limbs in bed but primarily with eyes closed. She does open eyes briefly, likely in response to Mom's encouragement, however is not able to answer any questions at this time and appears to quickly fall back to sleep. She remains on the monitor and with frequent checks from staff.
--- NOTE | 2023-06-02 22:47 | W.EDPROG ---
Date of service: 06/02/23 Time of Service: 22:00 Medical Decision Making 32-year-old female presented with paranoia. History of substance abuse. She was initially given ketamine and rested. Laboratory studies show low potassium. She initially received 10 mEq IV. Further IV replacement was ordered as patient cannot take p.o. at this time. 2330-patient awake. She is slightly agitated and confused. Tearful. Will give dose of Ativan and allow patient to sober further. 0530 -patient now awake and alert and requesting discharge home. She was able to take oral potassium supplementation and has received total of 50 mEq potassium through the IV. She denies any suicidal ideation or homicidal ideation. Patient's mom is present and will be taking her home. She is having some intermittent muscle twitching. Mom states that this is common when she withdrawals from drugs however this is little bit worse than usual. I have recommended that she continue to hydrate. She does have some bruising from the recent events. She can take Tylenol Motrin as needed for the bruising. She will be given 1 dose of Ativan to take when she gets home so that she may continue to rest. Will continue to hydrate orally. Have recommended follow-up with primary care and mental health as needed. They understand indications to return. Quality:[facility] Health Related Social Needs: No Data to Display Sign Out Sign Out Data: Sign Out Comment: Please follow-up labs including troponin and clinically reassess this 32-year-old female status post procedural sedation with dissociative dose ketamine in the setting of dangerous agitation secondarily likely to recreational drug use with amphetamines and fentanyl along with escalation from lung enforcement personnel and transient but now resolved restraint use. Last updated by Steve Tolbert MD at 06/02/23 17:30 Sign Out Comment: 32y F with known poly substance abuse, received ketamine in ED for agitation. Responded well to this, and has been sleeping for several hours. No behavioral concerns after this. Mom at bedside. Events today likely all drug related. Labs reviewed, mild hypo K repleated with IV infusion. Placed on D5NS maintenance fluids while sleeping. Plan for continued monitoring until alert and awake. At that time, would assess any psych needs and dispo accordingly. Last updated by Pasha Morrison MD at 06/02/23 22:13 Discharge Plan Disposition Patient Disposition: Home Condition: Improving Discharge Details Clinical Impression: Acute hypokalemia, Acute drug intoxication with delirium Primary Care Provider: Unknown,Unknown ED Provider: Dorina East Discharge Instructions Instructions: Hypokalemia (ED), Acute Delirium (ED), Polysubstance Abuse (ED) Additional Instructions: Recommend continuing to hydrate at home. Please follow-up with your primary care physician or mental health as needed. Discharge Data Discharge Physician: Dorina East
[2023-06-02] MEDS: LORazepam 2 MG/ML VIAL IVP (23:30)
[2023-06-02] MEDS: POTASSIUM CHLORIDE 20 MEQ/100 ML BAG 50 MEQ IVPB (23:38)
[2023-06-03] MEDS: POTASSIUM CHLORIDE 20 MEQ/100 ML BAG 50 MEQ IVPB (01:06)
[2023-06-03 02:01] VITALS: BP 112/41; PULSE 73
[2023-06-03 03:01] VITALS: BP 110/53; PULSE 76
[2023-06-03 04:01] VITALS: BP 106/63; PULSE 68
[2023-06-03 05:01] VITALS: BP 108/45; PULSE 67
[2023-06-03] MEDS: Potassium Chloride 20 MEQ TABCR 40 MEQ PO (05:16)
[2023-06-03 05:32] VITALS: BP 112/58; PULSE 88; RESP 22; TEMP 36.2; O2SAT 99
[2023-06-03] MEDS: LORazepam 1 MG TAB PO (05:40)
== END 2023-06-03 05:42 | disposition home or self-care (01) ==
PROVIDERS: Emergency Medicine; Emergency Provider Emergency Medicine Emergency Medical Services
DX: F15.921 Other stimulant use, unspecified with intoxication delirium (principal); R45.1 Restlessness and agitation; G93.40 Encephalopathy, unspecified; G40.909 Epilepsy, unspecified, not intractable, without status epilepticus; F17.210 Nicotine dependence, cigarettes, uncomplicated; F11.921 Opioid use, unspecified with intoxication delirium
CPT/HCPCS: 00123; 36415; 80048; 82962; 93005; 96360; 99284; 80320; 80329; 84484; 84703; 85025; 93010; J2060; J2250; J3480; J7042

== ENCOUNTER 2023-08-28 14:21 | Outpatient (CLI) | payer MEDICAID, SELFPAY ==
[2023-08-28 15:15] LABS: HCG Quant, Pregnancy 17 mIU/mL (1-3)
== END 2023-08-28 14:22 | disposition home or self-care (01) ==
LOC: LBO 14:22
PROVIDERS: Visit Provider Advanced Practice Midwife
DX: O20.0 Threatened abortion (principal)
CPT/HCPCS: 36415; 86850; 86900; 86901; 84702

== ENCOUNTER 2023-08-30 13:48 | Outpatient (CLI) | payer MEDICAID, SELFPAY ==
[2023-08-30 14:36] LABS: HCG Quant, Pregnancy 11 mIU/mL (1-3)
== END 2023-08-30 13:49 | disposition home or self-care (01) ==
LOC: LBO 13:48
PROVIDERS: Visit Provider Advanced Practice Midwife
DX: O20.0 Threatened abortion (principal)
CPT/HCPCS: 36415; 84702

== ENCOUNTER 2023-10-15 20:26 | Outpatient (REF) | payer MEDICAID, SELFPAY ==
[2023-10-15 20:17] LABS: *AMPHETAMINES SCREEN URINE Negative (Negative); *BARBITURATES SCREEN URINE Negative (Negative); *BENZODIAZEPINES SCREEN URINE Negative (Negative); Cannabinoids THC Positive (Negative); Cocaine Screen,Urine Negative (Negative); METHADONE URINE SCREEN Negative (Negative); OPIATES URINE SCREEN Negative (Negative)
[2023-10-15 20:20] LABS: Tricyclic Antidepressants Negative (Negative)
[2023-10-19 11:57] LABS: Buprenorphine 422.7 ng/mL (Cutoff: 5.0)
[2023-10-25 11:09] LABS: Naloxone Screen Total Ur None Detected
== END 2023-10-15 20:27 | disposition home or self-care (01) ==
LOC: LBN 20:26
DX: F11.20 Opioid dependence, uncomplicated (principal)
CPT/HCPCS: 80307; 80348

== ENCOUNTER 2023-12-04 14:55 | Outpatient (REF) | payer MEDICAID, SELFPAY ==
[2023-12-04 18:48] LABS: *AMPHETAMINES SCREEN URINE Negative (Negative); *BARBITURATES SCREEN URINE Negative (Negative); *BENZODIAZEPINES SCREEN URINE Negative (Negative); Cannabinoids THC Positive (Negative); Cocaine Screen,Urine Negative (Negative); METHADONE URINE SCREEN Negative (Negative); OPIATES URINE SCREEN Negative (Negative)
[2023-12-04 18:52] LABS: Tricyclic Antidepressants Negative (Negative)
[2023-12-10 11:49] LABS: Buprenorphine 443.8 ng/mL (Cutoff: 5.0); Norbuprenorphine 1221.2 ng/mL (Cutoff: 2.5)
[2023-12-14 09:56] LABS: Naloxone Screen Total Ur None Detected
== END 2023-12-04 14:56 | disposition home or self-care (01) ==
LOC: LBN 14:55
PROVIDERS: Visit Provider Emergency Medicine
DX: F11.20 Opioid dependence, uncomplicated (principal)
CPT/HCPCS: 80307; 80348

== ENCOUNTER 2024-01-10 17:40 | Outpatient (REF) | payer MEDICAID, SELFPAY ==
--- OUTSIDE RECORDS SUMMARY | 2024-01-10 17:42 | XMS_ITS | Clinical Summary ---
Author Organization [facility] Address [facility] [place] [address] Care Team Providers Care Insurance Law Specialist Name Role Phone Johann Frazier MD, Nena Primary Care Provider [phone] Social History Tobacco Use Types Packs/Day Years Used Date Smoking Tobacco: Never Assessed Sex and Gender Information Value Date Recorded Sex Assigned at Not on file Gender Identity Not on file Sexual Orientation Not on file Plan of Treatment Health Maintenance Due Date Last Done Comments HIV screen 12/23/2007 Hepatitis C Screening 12/23/2007 Hepatitis B vaccine (0-59 yrs) (1) 2008 Tetanus/Diphtheria/Pertussis Vaccines (1 - Tdap) 12/22 HPV test 12/23/2019 PAP Smear 12/23/2019 Covid-19 Vaccine (1 - 2022- season) 2023 Influenza (Flu) vaccine (1 o f 1 - Influenza standard series) 11/03/2023 Care Teams Insurance Law Specialist Relationship Specialty Start Date End Date Nena Wills MD [address] [place] [address] [place] [address] PCP - General 01/24/10
--- OUTSIDE RECORDS SUMMARY | 2024-01-10 17:42 | XMS_ITS | Encounter Summary ---
Author Organization Formerly [facility], 1928–1983 Address [facility] [place] [address] Care Team Providers Care Theater Technician Name Role Phone Johann Frazier MD, Nena Primary Care Provider [phone] Encounter Details Date Type Department Care Team (Late st Contact Info) Description 09/04/2004 Orders [place] [id number] Bert Garza MD [facility] PEDIATRICS/[place] [address] Social History Tobacco Use Types Packs/Day Years Used Date Smoking Tobacco: Never Assessed Sex and Gender Information Value Date Recorded Sex Assigned at Not on file Gender Identity Not on file Sexual Orientation Not on file documented as of this encounter Plan of Treatment Not on file documented as of this encounter Procedures Procedure Name Priority Date/Time Associated Diagnosis Comments SURGICAL PATHOLOGY REPORT Routine 09/04/2004 7:14 AM EDT documented in this encounter Results * Surgical Pathology Report (09/04/2004 7:14 AM EDT) Surgical Pathology Report [id number] ? Location: The signing pathologist has (i) examined the relevant preparation(s) for the specimen(s) and (ii) rendered or confirmed the diagnosis(es). . ?Pathology Surgical Pathology Final Report Clinical Information Specimen Submitted: A - Placenta Clinical History: 31 6/7 wks. ??? Maternal chorioamnionitis. ??CD: R/O chorioamnionitis. Gross Description Labeled/Fixative: ? Placental, fresh. Qty/Size/Weight: ?Bustillo placenta, 16.2 x 13.3 x 1.9 cm, 311 g. Tissue Description: ?? Membranes: ? Insertion is marginal. ??[place]-yellow, semiopaque. ?? Cord: ?46.0 x 1.6 cm; three vessels; paracentral insertion. ?Multiple luis-yellow cysts toward the proximal end of ?the cord, filled with a translucent substance, ?? Surface: ? [place]-red and clear with one cyst at the margin ?measuring 1.0 x 0.4 cm. ?? Maternal Surface: ??Complete and intact with a moderate amount of ?calcification. ?? Parenchyma: ?The specimen is serially sectioned at 0.5-cm to 1-cm ?intervals. ??Sections show spongy, red parenchyma with ?no lesions. Sections/Processing : ??Sections are submitted as follows: ??(1) membrane ?roll, proximal and distal cord; (2) surface ?with parenchyma; (3) maternal surface with ?parenchyma. ??(R3) ??aje/HSE Microscopic Description Slides reviewed, microscopic description not recorded. Diagnosis placenta, cord and membranes: Positive for acute chorioamnionitis and funisitis CR-0 09/08/04 KO 09/08/04 Verified by: ? Marge Garcia MD ?Pathologist ?(Electronic Signature) The attending pathologist whose signature appears on this report has reviewed all diagnostic slides and has edited the gross and/or microscopic portion of the report in rendering the final pathologic diagnosis. MIGUEL HOLLOWAY 09/04/2004 7:14 AM EDT Bert Garza MD PATHOLOGY/CYTOLOGY O ELENI Performing Organization Address City/State/[facility] Co de Phone Number MIGUEL HOLLOWAY documented in this encounter Visit Diagnoses Not on filedocumented in this encounter Care Teams Theater Technician Relationship Specialty Start Date End Date Nena Wills MD [address] [place] [address] [place] [address] PCP - General 01/24/10 documented as of this encounter
[2024-01-10 19:00] LABS: *AMPHETAMINES SCREEN URINE Negative (Negative); *BARBITURATES SCREEN URINE Negative (Negative); *BENZODIAZEPINES SCREEN URINE Negative (Negative); Cannabinoids THC Positive (Negative); Cocaine Screen,Urine Negative (Negative); METHADONE URINE SCREEN Negative (Negative); OPIATES URINE SCREEN Negative (Negative)
[2024-01-10 19:01] LABS: Tricyclic Antidepressants Negative (Negative)
[2024-01-15 11:18] LABS: Buprenorphine 237.6 ng/mL (Cutoff: 5.0); Norbuprenorphine 978.5 ng/mL (Cutoff: 2.5)
[2024-01-21 09:51] LABS: Naloxone Screen Total Ur None Detected
== END 2024-01-10 17:41 | disposition home or self-care (01) ==
LOC: LBN 17:40
PROVIDERS: Visit Provider Emergency Medicine
DX: F11.20 Opioid dependence, uncomplicated (principal)
CPT/HCPCS: 80307; 80348

== ENCOUNTER 2024-02-21 12:46 | Outpatient (REF) | payer MEDICAID, SELFPAY ==
--- OUTSIDE RECORDS SUMMARY | 2024-02-21 12:49 | XMS_ITS | Clinical Summary ---
Author Organization [facility] Address [facility] [place] [address] Care Team Providers Care Clean Room Assembler Name Role Phone Johann Frazier MD, Nena Primary Care Provider [phone] Social History Tobacco Use Types Packs/Day Years [...] PAP Smear 12/23/2019 Covid-19 Vaccine (1 - 2023- season) 2023 Influenza (Flu) vaccine (1 o f 1 - Influenza standard series) 11/03/2023 Care Teams Clean Room Assembler Relationship Specialty Start Date End Date Nena Wills MD [address] [place] [address] [place] [address] PCP - General 01/24/10
--- OUTSIDE RECORDS SUMMARY | 2024-02-21 12:49 | XMS_ITS | Encounter Summary ---
Author Organization [facility] Address [facility] [facility] [place] [address] Care Team Providers Care Mechanics Handyman Name Role Phone Johann Frazier MD, Nena Primary Care Provider [phone] Encounter Details Date Type Department Care Team (Late st Contact Info) Description 09/04/2004 [place] [address] Bert Garza MD Social History Tobacco Use Types Packs/Day Years [...] 7:14 AM EDT) Surgical Pathology Report [id number] ? Location: The signing pathologist has (i) [...] Description: ?? Membranes: ? Insertion is marginal. ??[place]-yellow, semiopaque. ?? Cord: ?46.0 x 1.6 cm; [...] AM EDT Bert Garza MD PATHOLOGY/CYTOLOGY O RDERABLES [facility] documented in this encounter Visit Diagnoses Not on filedocumented in this encounter Care Teams Mechanics Handyman Relationship Specialty Start Date End Date [place]ena [place]ills [place] [address] PCP - General 01/24/10 documented as of this encounter
[2024-02-21 13:54] LABS: *AMPHETAMINES SCREEN URINE Negative (Negative); *BARBITURATES SCREEN URINE Negative (Negative); *BENZODIAZEPINES SCREEN URINE Negative (Negative); Cannabinoids THC Positive (Negative); Cocaine Screen,Urine Positive (Negative); METHADONE URINE SCREEN Negative (Negative); OPIATES URINE SCREEN Negative (Negative)
[2024-02-21 13:58] LABS: Tricyclic Antidepressants Negative (Negative)
[2024-02-28 07:06] LABS: Buprenorphine 909.8 ng/mL (Cutoff: 5.0); Norbuprenorphine 3223.9 ng/mL (Cutoff: 2.5)
[2024-03-06 11:00] LABS: Naloxone Screen Total Ur None Detected
== END 2024-02-21 12:47 | disposition home or self-care (01) ==
LOC: LBN 12:46
PROVIDERS: Visit Provider Emergency Medicine
DX: F11.20 Opioid dependence, uncomplicated (principal)
CPT/HCPCS: 80307; 80348

== ENCOUNTER 2024-03-11 13:29 | Outpatient (REF) | payer MEDICAID, SELFPAY ==
--- OUTSIDE RECORDS SUMMARY | 2024-03-11 13:31 | XMS_ITS | Encounter Summary ---
Author Organization Formerly [facility] Address [facility] [facility] [place] [address] Care Team Providers Care Finish Saw Operator Name Role Phone Johann Frazier MD, Nena Primary Care Provider [phone] Encounter Details Date Type Department Care Team (Late st Contact Info) Description 09/04/2004 Orders [place] [address] Bert Garza MD Social History [...] 7:14 AM EDT) Surgical Pathology Report [id number] ? Location: The signing pathologist has (i) [...] Description: ?? Membranes: ? Insertion is marginal. ??[place]-yellow, semiopaque. ?? Cord: ?46.0 x 1.6 cm; [...] Bert Garza MD PATHOLOGY/CYTOLOGY O RDERABLES [facility] documented in this encounter Visit Diagnoses Not on filedocumented in this encounter Care Teams Finish Saw Operator Relationship Specialty Start Date End Date Nena Wills MD [address] [address] PCP - General 01/24/10 documented as of this encounter
--- OUTSIDE RECORDS SUMMARY | 2024-03-11 13:31 | XMS_ITS | Clinical Summary ---
Author Organization [facility] Address [facility] [place] [address] Care Team Providers Care Finisher Fine Diamond Dies Name Role Phone Johann Frazier MD, Nena Primary Care Provider [phone] Social History Tobacco Use Types Packs/Day Years [...] - Influenza standard series) 11/03/2023 Care Teams Finisher Fine Diamond Dies Relationship Specialty Start Date End Date Nena Wills MD [address] [place] [address] [place] [address] PCP - General 01/24/10
[2024-03-11 17:50] LABS: *AMPHETAMINES SCREEN URINE Negative (Negative); *BARBITURATES SCREEN URINE Negative (Negative); *BENZODIAZEPINES SCREEN URINE Negative (Negative); Cannabinoids THC Positive (Negative); Cocaine Screen,Urine Positive (Negative); METHADONE URINE SCREEN Negative (Negative); OPIATES URINE SCREEN Negative (Negative); Tricyclic Antidepressants Negative (Negative)
[2024-03-16 12:12] LABS: Buprenorphine 1200.9 ng/mL (Cutoff: 5.0)
[2024-03-24 16:47] LABS: Naloxone Screen Total Ur None Detected
== END 2024-03-11 13:30 | disposition home or self-care (01) ==
LOC: LBN 13:29
PROVIDERS: Visit Provider Emergency Medicine
DX: Z79.891 Long term (current) use of opiate analgesic (principal); F11.20 Opioid dependence, uncomplicated
CPT/HCPCS: 80307; 80348

== ENCOUNTER 2024-04-17 11:34 | Outpatient (REF) | payer MEDICAID, SELFPAY ==
[2024-04-17 12:36] LABS: *AMPHETAMINES SCREEN URINE Negative (Negative); *BARBITURATES SCREEN URINE Negative (Negative); *BENZODIAZEPINES SCREEN URINE Negative (Negative); Cannabinoids THC Positive (Negative); Cocaine Screen,Urine Negative (Negative); METHADONE URINE SCREEN Negative (Negative); OPIATES URINE SCREEN Negative (Negative)
[2024-04-17 12:42] LABS: Tricyclic Antidepressants Negative (Negative)
[2024-04-22 11:48] LABS: Buprenorphine 357.7 ng/mL (Cutoff: 5.0); Norbuprenorphine 1248.9 ng/mL (Cutoff: 2.5)
[2024-04-29 09:33] LABS: Naloxone Screen Total Ur None Detected
== END 2024-04-17 11:35 | disposition home or self-care (01) ==
LOC: LBN 11:34
PROVIDERS: Visit Provider Emergency Medicine
DX: F11.20 Opioid dependence, uncomplicated (principal)
CPT/HCPCS: 80307; 80348; 80362

== ENCOUNTER 2024-04-25 18:17 | Emergency (ER) | payer MEDICAID, SELFPAY ==
[2024-04-25 18:20] VITALS: BP 129/85; PULSE 82; RESP 15; TEMP 36.2; O2SAT 97
[2024-04-25 18:25] VITALS: BP 129/85; PULSE 82; RESP 15; TEMP 36.2; O2SAT 97
--- NOTE | 2024-04-25 19:03 | ED.GENADUL_ITS ---
Discharge Plan Disposition Patient Disposition: Home Condition: Stable Discharge Details Clinical Impression: Pain, dental Primary Care Provider: Unknown,Unknown ED Provider: Pasha Morrison Home Meds and New Rx's Prescriptions: New clindamycin HCl 150 mg capsule 450 mg PO TID 7 Days Qty: 63 0RF chlorhexidine gluconate 0.12 % mouthwash 15 ml mucous membrane BID Qty: 1893 0RF No Action buprenorphine HCl 8 mg tablet, sublingual 24 mg sublingual DAILY Discharge Instructions Instructions: Dental Pain ED Additional Instructions: Take medications as prescribed. Please follow-up with your dentist. Please continue to use Tylenol or Motrin for pain. HPI General Date/Time Provider Initiated Documentation: 04/25/24 18:37 . Limitations to Documentation: no limitations . Information obtained by: patient . HPI Narrative: 33-year-old female with past medical history of opiate use disorder presents for evaluation of face swelling and numbness. She reports that she has been having some dental problems and was scheduled for a root canal but it had to be aborted because she did not have good analgesia. She reports that she has been having some intermittent numbness on the left lower lip and today noted that maybe she also felt some numbness in her chest wall. She denies any pain in her neck, difficulty swallowing, voice change. She denies any drooling from 1 side of her mouth. She does note some tenderness and pain along the left lower jaw Related Data Home Medications ?Medication ?Instructions ?Recorded ?Confirmed buprenorphine HCl 8 mg sublingual 24 mg sublingual DAILY 08/28/23 04/25/24 tablet chlorhexidine gluconate 0.12 % 15 ml mucous membrane BID #1,893 mL 04/25/24 mouthwash clindamycin HCl 150 mg capsule 450 mg (3 x 150 mg) PO TID 7 days 04/25/24 #63 caps Previous Rx's ?Medication ?Instructions ?Recorded chlorhexidine gluconate 0.12 % 15 ml mucous membrane BID #1,893 mL 04/25/24 mouthwash clindamycin HCl 150 mg capsule 450 mg (3 x 150 mg) PO TID 7 days 04/25/24 #63 caps Allergies Allergy/AdvReac Type Severity Reaction Status Date / Time Penicillins Allergy Severe Anaphylaxsi Unverified 08/28/23 13:23 s codeine Allergy Intermediate Skin Rash Unverified 08/28/23 13:23 wheat Allergy Intermediate Skin Rash Verified 08/28/23 13:23 venom-honey bee (bee venom Allergy Unknown Swelling/Ed Unverified 08/28/23 13:23 (honey bee)) bala onions Allergy Intermediate Swelling/Ed Uncoded 08/28/23 13:23 bala General Stated Complaint: DentalOral NEIL: 3 Exam Narrative Exam Narrative: Review of Systems: All systems reviewed & are unremarkable except as noted in HPI and below Well-developed, no acute distress NCAT cranial nerves intact, no facial asymmetry Sensation grossly intact Multiple dental caries, no abscess or intraoral lesions noted Floor of mouth is soft There is some mild swelling along the left mandible No significant cervical adenopathy No gross sensory change, PERRL, normal conjunctiva RRR Unlabored respiratory effort Nondistended abdomen no focal neurologic deficits Course Vital Signs Vital signs: Vital Signs Temperature 36.2 C L 04/25/24 18:20 Pulse 82 04/25/24 18:20 Respiratory Rate 15 04/25/24 18:20 Blood Pressure 129/85 04/25/24 18:20 Pulse Oximetry 97 04/25/24 18:20 Temperature 36.2 C L 04/25/24 18:25 Pulse 82 04/25/24 18:25 Respiratory Rate 15 04/25/24 18:25 Blood Pressure 129/85 04/25/24 18:25 Blood Pressure Position Sitting 04/25/24 18:25 Pulse Oximetry 97 04/25/24 18:25 Oxygen Delivery Method Room Air 04/25/24 18:25 Oxygen Flow Rate 0 04/25/24 18:25 Pain Level 0 04/25/24 18:46 Medical Decision Making Emergent evaluation of left facial swelling. The patient reports numbness but there is no obvious deficit and the cranial nerves are all intact. I suspected dental infection causing her symptoms. I do not have a suspicion for stroke or other intracranial process as an etiology of her symptoms. Will treat with antibiotics and recommend close follow-up with dentist. Return precautions advised. Quality:SDOH Health Related Social Needs: No Data to Display PFSH All Active Problems (Updated 04/25/24 @ 18:37 by Pasha Morrison MD) Miscarriage, threatened, early (Acute) Tobacco dependence (Acute) Pain, dental (Acute) Medical History History of delivery Seizure disorder Hepatitis C History of kidney stones History of incarceration Frequent UTI Polysubstance (excluding opioids) dependence Opiate use History of crack cocaine use Social History Smoking/Tobacco Use Status: Current every day Tobacco Type: cigarettes Tobacco: How many years used: 15 Smoking risk assessment performed?: Yes Alcohol Intake: never Drug use: Occasionally Substance use type: crack/cocaine Details: unknown substance today Do you feel safe at home: Yes Do you feel safe in your relationship?: Yes History History 3 Para Hx # Term Pregnancies 2 Multiple births Hx # Pregnancies Ectopic pregnancies AB induced 1 Hx Number of Living Children 2 AB spontaneous Past Pregnancies Del. Date GA/Weeks # Preg Succ Route Wgt Sex Labor Lgth Anesth esia Location [facility] 09/04/04 30 vaginal 1814.369 g Male [facility] 12/20/08 40 vaginal 2749.904 g Male [facility] Delivery Date: 09/04/04 Last Updated by: Gisele Salvador CNM [place] Delivery Date: 12/20/08 Last Updated by: Gisele Salvador CNM [place]
== END 2024-04-25 18:52 | disposition home or self-care (01) ==
LOC: ER 18:41
PROVIDERS: Emergency Provider Emergency Medicine
DX: R68.84 Jaw pain (principal); K08.89 Other specified disorders of teeth and supporting structures; F17.210 Nicotine dependence, cigarettes, uncomplicated
CPT/HCPCS: 99283

== ENCOUNTER 2024-05-15 16:23 | Outpatient (REF) | payer MEDICAID, SELFPAY ==
[2024-05-15 16:18] LABS: *AMPHETAMINES SCREEN URINE Negative (Negative); *BARBITURATES SCREEN URINE Negative (Negative); *BENZODIAZEPINES SCREEN URINE Negative (Negative); Cannabinoids THC Positive (Negative); Cocaine Screen,Urine Negative (Negative); METHADONE URINE SCREEN Negative (Negative); OPIATES URINE SCREEN Positive (Negative)
[2024-05-15 16:24] LABS: Tricyclic Antidepressants Negative (Negative)
[2024-05-22 10:59] LABS: Buprenorphine 472.3 ng/mL (Cutoff: 5.0); Norbuprenorphine 870.7 ng/mL (Cutoff: 2.5)
[2024-05-22 13:47] LABS: Naloxone Screen Total Ur None Detected
== END 2024-05-15 16:24 | disposition home or self-care (01) ==
LOC: LBN 16:23
PROVIDERS: Visit Provider Emergency Medicine
DX: F11.20 Opioid dependence, uncomplicated (principal)
CPT/HCPCS: 80307; 80348

== ENCOUNTER 2024-06-29 16:18 | Outpatient (REF) | payer MEDICAID, SELFPAY ==
[2024-06-29 10:41] LABS: *AMPHETAMINES SCREEN URINE Negative (Negative); *BARBITURATES SCREEN URINE Negative (Negative); *BENZODIAZEPINES SCREEN URINE Negative (Negative); Cannabinoids THC Positive (Negative); Cocaine Screen,Urine Positive (Negative); METHADONE URINE SCREEN Positive (Negative); OPIATES URINE SCREEN Negative (Negative)
[2024-06-29 10:42] LABS: Tricyclic Antidepressants Negative (Negative)
[2024-07-08 08:47] LABS: Naloxone Screen Total Ur None Detected
== END 2024-06-29 16:19 | disposition home or self-care (01) ==
LOC: LBN 16:18
PROVIDERS: Visit Provider Emergency Medicine
DX: F11.20 Opioid dependence, uncomplicated (principal)
CPT/HCPCS: 80307; 80348

== ENCOUNTER 2024-07-15 16:26 | Outpatient (REF) | payer MEDICAID, SELFPAY ==
[2024-07-15 18:37] LABS: *AMPHETAMINES SCREEN URINE Negative (Negative); *BARBITURATES SCREEN URINE Negative (Negative); *BENZODIAZEPINES SCREEN URINE Negative (Negative); Cannabinoids THC Positive (Negative); Cocaine Screen,Urine Positive (Negative); METHADONE URINE SCREEN Negative (Negative); OPIATES URINE SCREEN Negative (Negative)
[2024-07-15 18:39] LABS: Tricyclic Antidepressants Negative (Negative)
[2024-07-21 10:53] LABS: Buprenorphine 200.1 ng/mL (Cutoff: 5.0); Norbuprenorphine 575.5 ng/mL (Cutoff: 2.5)
[2024-07-30 10:48] LABS: Naloxone Screen Total Ur None Detected
== END 2024-07-15 16:27 | disposition home or self-care (01) ==
LOC: LBN 16:26
PROVIDERS: Visit Provider Emergency Medicine
DX: Z79.899 Other long term (current) drug therapy (principal); F11.20 Opioid dependence, uncomplicated
CPT/HCPCS: 80307; 80348

== ENCOUNTER 2024-08-21 14:45 | Outpatient (REF) | payer MEDICAID, SELFPAY ==
[2024-08-21 15:53] LABS: *AMPHETAMINES SCREEN URINE Negative (Negative); Cannabinoids THC Positive (Negative)
[2024-08-21 16:51] LABS: *BARBITURATES SCREEN URINE Negative (Negative); *BENZODIAZEPINES SCREEN URINE Negative (Negative); Cocaine Screen,Urine Positive (Negative); METHADONE URINE SCREEN Negative (Negative); OPIATES URINE SCREEN Negative (Negative)
[2024-08-21 16:53] LABS: Tricyclic Antidepressants Negative (Negative)
[2024-08-31 15:44] LABS: Buprenorphine 620.1 ng/mL (Cutoff: 5.0); Norbuprenorphine 1212.1 ng/mL (Cutoff: 2.5)
== END 2024-08-21 14:46 | disposition home or self-care (01) ==
LOC: LBN 14:45
PROVIDERS: PCP Emergency Medicine; Visit Provider Emergency Medicine
DX: F11.20 Opioid dependence, uncomplicated (principal)
CPT/HCPCS: 80307; 80348

== ENCOUNTER 2024-10-07 09:06 | Outpatient (REF) | payer MEDICAID, SELFPAY ==
[2024-10-07 12:36] LABS: Cannabinoids THC Positive (Negative); METHADONE URINE SCREEN Negative (Negative)
[2024-10-14 09:04] LABS: Naloxone Screen Total Ur None Detected; Reporting Limit 5.0 ng/mL
== END 2024-10-07 09:07 | disposition home or self-care (01) ==
LOC: LBN 09:06
PROVIDERS: PCP Emergency Medicine; Visit Provider Emergency Medicine
DX: F11.20 Opioid dependence, uncomplicated (principal)
CPT/HCPCS: 80307; 80348

== ENCOUNTER 2024-11-18 16:52 | Outpatient (REF) | payer MEDICAID, SELFPAY ==
[2024-11-18 19:16] LABS: Cannabinoids THC Positive (Negative); METHADONE URINE SCREEN Negative (Negative)
[2024-11-26 08:36] LABS: Naloxone Screen Total Ur None Detected; Reporting Limit 5.0 ng/mL
== END 2024-11-18 16:53 | disposition home or self-care (01) ==
LOC: NCHCN 16:52
PROVIDERS: PCP Emergency Medicine; Visit Provider Emergency Medicine
DX: F11.20 Opioid dependence, uncomplicated (principal)
CPT/HCPCS: 80307; 80348

== ENCOUNTER 2024-11-25 04:15 | Outpatient (CLI) | payer MEDICAID, SELFPAY ==
[2024-11-25 15:28] LABS: Abs Immature Grans 0.03 10^3/uL (0.0-0.06); HCT 33.5 % (36.0-46.0); HGB 11.4 g/dL (11.2-15.7); Immature Grans % 0.4 %; MCH 31.1 pg (27.0-33.0); MCHC 34.0 % (32.0-36.0); MCV 91 fL (80-95); MPV 10.6 fL (8.0-11.0); Platelet Count 217 10^3/uL (130-400); RBC 3.67 10^6/uL (3.93-5.22); RDW 14.2 % (11.7-14.6); RDW-SD 47.9 fL; WBC 8.50 10^3/uL (4.4-10.8)
[2024-11-25 20:11] LABS: ALT 14 U/L (14-59); AST 15 U/L (15-37); Albumin 3.7 g/dL (3.4-5.0); Alkaline Phosphatase 48 U/L (46-116); BUN 11 mg/dL (7-18); Calcium 8.9 mg/dL (8.5-10.1); Chloride 104 mmol/L (98-107); Estimated GFR 120.72 (mL/min/1.73m2); Glucose 96 mg/dL (74-106); Potassium 4.6 mmol/L (3.5-5.1); Sodium 139 mmol/L (136-145); Total Protein 6.8 g/dL (6.4-8.2)
[2024-11-25 20:35] LABS: Anion Gap 12.3 mmol/L (3-11); Bilirubin, Total 0.3 mg/dL (0.2-1.0); CO2 22.7 mmol/L (21.0-32.0)
[2024-11-26 19:14] LABS: HIV-1/2 Ag & Ab Screen Negative (Negative)
[2024-11-26 19:17] LABS: Hepatitis C Ab w Rflx HCV PCR Reactive (Negative)
[2024-11-27 11:21] LABS: Rubella IgG Ab (UVM) Positive (See Note)
[2024-11-29 12:45] LABS: Syphilis IgG w/Reflex Nonreactive (Nonreactive)
== END 2024-11-25 04:16 | disposition home or self-care (01) ==
LOC: LBO 04:15
PROVIDERS: PCP Emergency Medicine; Visit Provider Advanced Practice Midwife
DX: Z34.91 Encounter for supervision of normal pregnancy, unspecified, first trimester (principal)
CPT/HCPCS: 36415; 80053; 81220; 81222; 86787; 86803; 86850; 86900; 86901; 87340; 87389; 87522; 85025; 86762; 86780

== ENCOUNTER 2024-11-25 14:17 | Outpatient (REF) | payer MEDICAID, SELFPAY ==
--- NOTE | 2024-11-25 14:17 | PAPFT_PTH ---
PATIENT: Kari Sesay LOC: [facility] U#:[id number] AGE/SX: 33/F ROOM: RE11/25/[address]: Gisele Salvador : 1990 BED: DIS: 11/25/2024 SPEC #: [id number] RECD: 11/25/24 18:06 STATUS: HEATHER REQ #: [id number] CLAUDETTE: 11/25/24 14:[address]: Gisele Salvador DEPT: [facility] Cytology RECD BY: Erin Garza Tissues: 1 - CX/ENDOCX FOR PAP SMEARS Procedures: PAP THIN PREP/UVM Screening HPV DNA PROBE Comments: [id number] (HPV 16 & 18/45) (CHLAMYDIA/GC)
[2024-11-25 16:32] LABS: Cannabinoids THC Positive (Negative); METHADONE URINE SCREEN Negative (Negative)
[2024-11-26 12:00] LABS: Chlamydia Result Negative (Negative); GC Result Negative (Negative)
[2024-11-27 12:33] LABS: Fentanyl Scr w/Rfx Confirm Negative ng/mL (<1)
== END 2024-11-25 14:18 | disposition home or self-care (01) ==
LOC: LBN 14:17
PROVIDERS: PCP Emergency Medicine; Visit Provider Advanced Practice Midwife
DX: Z34.90 Encounter for supervision of normal pregnancy, unspecified, unspecified trimester (principal)
CPT/HCPCS: 80307; 80348; 87491; 87591; 88142; 87086; 87624

== ENCOUNTER 2024-12-23 10:03 | Outpatient (REF) | payer MEDICAID, SELFPAY ==
[2024-12-23 11:58] LABS: Cannabinoids THC Positive (Negative); METHADONE URINE SCREEN Negative (Negative)
[2024-12-24 12:31] LABS: Fentanyl Scr w/Rfx Confirm Negative ng/mL (<1)
== END 2024-12-23 10:04 | disposition home or self-care (01) ==
LOC: LBN 10:03
PROVIDERS: PCP Emergency Medicine; Visit Provider Advanced Practice Midwife
DX: Z34.91 Encounter for supervision of normal pregnancy, unspecified, first trimester (principal)
CPT/HCPCS: 80307; 80348

== ENCOUNTER 2025-02-17 11:04 | Outpatient (REF) | payer MEDICAID, SELFPAY ==
[2025-02-17 13:57] LABS: Cannabinoids THC Positive (Negative); Fentanyl Scr w/Rflx to Conf, U Negative (Negative)
== END 2025-02-17 11:05 | disposition home or self-care (01) ==
LOC: LBN 11:04
PROVIDERS: PCP Emergency Medicine; Visit Provider Registered Nurse
DX: Z34.92 Encounter for supervision of normal pregnancy, unspecified, second trimester (principal)
CPT/HCPCS: 80307; 80348